=== PATIENT | female | born 1955 | race Caucasian/White ===

== ENCOUNTER 2023-03-23 08:33 | Day surgery (SDC) | payer OTHER | END 2023-03-23 15:00 | disposition home or self-care (01) | LOC: AMB-ENDOS 08:33 | PROVIDERS: ATTEND Colon & Rectal Surgery | DX: D12.2 Benign neoplasm of ascending colon (principal); D12.4 Benign neoplasm of descending colon; D12.3 Benign neoplasm of transverse colon; K62.1 Rectal polyp; K57.30 Diverticulosis of large intestine without perforation or abscess without bleeding; Z20.822 Contact with and (suspected) exposure to COVID-19; Z88.6 Allergy status to analgesic agent ==

== ENCOUNTER → 2023-04-13 | Outpatient (CLI) | payer OTHER | END | disposition home or self-care (01) | LOC: LAB 11:24 | PROVIDERS: ATTEND Colon & Rectal Surgery | DX: Z01.818 Encounter for other preprocedural examination (principal); Z01.812 Encounter for preprocedural laboratory examination; K59.00 Constipation, unspecified; N39.0 Urinary tract infection, site not specified; K62.5 Hemorrhage of anus and rectum; D59.8 Other acquired hemolytic anemias; Z11.59 Encounter for screening for other viral diseases; Z20.828 Contact with and (suspected) exposure to other viral communicable diseases; D68.9 Coagulation defect, unspecified; K63.5 Polyp of colon ==

== ENCOUNTER 2023-04-21 12:45 | Inpatient (IN) | payer OTHER ==
[~2023-04-21] VITALS: Ht 152.4 cm; Wt 81.6 kg
[2023-04-21] MEDS ORDERED: TOPROL XL100 M1 PO (14:53)
[2023-04-21] MEDS ORDERED: HORIZANT600 MG PO (14:54)
[2023-04-21] MEDS ORDERED: AMBIEN10 MG PO (14:54)
[2023-04-21] MEDS ORDERED: CRESTOR5 MG PO (14:54)
[2023-04-21] MEDS ORDERED: SEROQUEL200 MG PO (14:55)
[2023-04-21] MEDS ORDERED: PRILOSEC OTC20 MG PO (14:55)
[2023-04-21] MEDS ORDERED: DICY20TA PO (14:55)
[2023-04-21] MEDS ORDERED: TELMISARTAN-HC1 EACH (15:21)
[2023-04-25] MEDS ORDERED: GABAPENTIN800 M1 (13:18)
[2023-04-25] MEDS ORDERED: ROSUVASTATIN CA20 MG (13:18)
[2023-04-25] MEDS ORDERED: OMEPRAZOLE20 MG (13:18)
[2023-04-25] MEDS ORDERED: DICYCLOMINE HCL20 MG (13:18)
[2023-04-25] MEDS ORDERED: GEMFIBROZIL600 MG (13:19)
[2023-04-25] MEDS ORDERED: CLONAZEPAM0.5 MG (13:19)
[2023-04-25] MEDS ORDERED: FAMOTIDINE20 MG (13:19)
== END 2023-05-11 16:50 | disposition home or self-care (01) | DRG 330 ==
LOC: O/R 04-25 10:24 → SURG 04-25 10:24 → SURH 05-02 11:56
PROVIDERS: ADMIT Colon & Rectal Surgery; ATTEND Colon & Rectal Surgery
PROC: 0DBP4ZZ Excision of Rectum, Percutaneous Endoscopic Approach (ICD-10-PCS; 2023-04-25)
PROC: 0DNW4ZZ Release Peritoneum, Percutaneous Endoscopic Approach (ICD-10-PCS; 2023-04-25)
PROC: 0WQF4ZZ Repair Abdominal Wall, Percutaneous Endoscopic Approach (ICD-10-PCS; 2023-04-25)
PROC: 07BB4ZX Excision of Mesenteric Lymphatic, Percutaneous Endoscopic Approach, Diagnostic (ICD-10-PCS; 2023-04-25)
PROC: 0DBU4ZZ Excision of Omentum, Percutaneous Endoscopic Approach (ICD-10-PCS; 2023-04-25)
PROC: 02HV33Z Insertion of Infusion Device into Superior Vena Cava, Percutaneous Approach (ICD-10-PCS; 2023-04-25)
PROC: 0DTN4ZZ Resection of Sigmoid Colon, Percutaneous Endoscopic Approach (ICD-10-PCS; principal; 2023-04-25 13:30)
PROC: BW21YZZ Computerized Tomography (CT Scan) of Abdomen and Pelvis using Other Contrast (ICD-10-PCS; 2023-04-28)
PROC: BW21YZZ Computerized Tomography (CT Scan) of Abdomen and Pelvis using Other Contrast (ICD-10-PCS; 2023-05-07)
DX: D12.6 Benign neoplasm of colon, unspecified (principal); K56.51 Intestinal adhesions [bands], with partial obstruction; K91.89 Other postprocedural complications and disorders of digestive system; K56.7 Ileus, unspecified; T81.43XA Infection following a procedure, organ and space surgical site, initial encounter; L03.311 Cellulitis of abdominal wall; R59.0 Localized enlarged lymph nodes; K43.9 Ventral hernia without obstruction or gangrene; I10 Essential (primary) hypertension; B96.20 Unspecified Escherichia coli [E. coli] as the cause of diseases classified elsewhere

== ENCOUNTER → 2024-06-22 11:20 | Outpatient (CLI) | payer OTHER ==
[~2024-06-22 11:20] MED LIST: AMBIEN10 MG PO; CLONAZEPAM0.5 MG; CRESTOR5 MG PO; DICY20TA PO; DICYCLOMINE HCL20 MG; FAMOTIDINE20 MG; GABAPENTIN800 M1; GEMFIBROZIL600 MG; HORIZANT600 MG PO; OMEPRAZOLE20 MG; PRILOSEC OTC20 MG PO; ROSUVASTATIN CA20 MG; SEROQUEL200 MG PO; TELMISARTAN-HC1 EACH; TOPROL XL100 M1 PO
[2024-06-22 13:07] LABS: CREATININE SERUM 0.89 mg/dL (0.55-1.02); GFR 62.7
== END | disposition home or self-care (01) ==
LOC: LAB 11:20
PROVIDERS: ATTEND Colon & Rectal Surgery
DX: R10.32 Left lower quadrant pain (principal); K56.50 Intestinal adhesions [bands], unspecified as to partial versus complete obstruction; K57.32 Diverticulitis of large intestine without perforation or abscess without bleeding

== ENCOUNTER 2024-06-26 07:54 | Outpatient (CLI) | payer OTHER | END 2024-06-26 08:01 | disposition home or self-care (01) | LOC: TOM 07:54 | PROVIDERS: ATTEND Colon & Rectal Surgery | DX: R10.32 Left lower quadrant pain (principal); K56.50 Intestinal adhesions [bands], unspecified as to partial versus complete obstruction; K57.32 Diverticulitis of large intestine without perforation or abscess without bleeding | CPT/HCPCS: 74177; Q9965 ==

== ENCOUNTER 2024-06-27 07:23 | Day surgery (SDC) | payer OTHER ==
[2024-06-27] MEDS ORDERED: ONDANSETRON HCL 2 MG/ML VIAL IV ONE (12:00)
[2024-06-27] MEDS ORDERED: DIPHENHYDRAMINE HCL 50 MG/ML VIAL 1ML IV ONE (12:00)
[2024-06-27] MEDS ORDERED: MIDAZOLAM HCL 2 MG/2 ML VIAL IV ONE (12:00)
[2024-06-27] MEDS ORDERED: fentaNYL CITRATE 50 MCG/ML AMPUL IV PUSH ONE (12:00)
== END 2024-06-27 13:25 | disposition home or self-care (01) ==
LOC: AMB-ENDOS 07:23
PROVIDERS: ATTEND Colon & Rectal Surgery
DX: K63.5 Polyp of colon (principal); Z88.6 Allergy status to analgesic agent; K64.8 Other hemorrhoids